=== PATIENT | female | born 1995 | race Caucasian/White ===

== ENCOUNTER 2017-08-24 05:55 | Emergency (ER) | payer BC ==
[~2017-08-24] VITALS: Ht 160 cm; Wt 72.9 kg
[2017-08-24 05:57] VITALS: TEMP 36.9; Ht 160 cm; Wt 72.9 kg
[2017-08-24] MEDS: GI COCKTAIL PO STA (06:10)
[2017-08-24] MEDS ORDERED: ETON1IMP2 (06:18)
--- NOTE | 2017-08-24 06:24 | EMERGENCY ROOM VISIT NOTE ---
History First contact with patient: 06:10 Chief Complaint: CHEST PAIN Stated Complaint: CHEST PAIN, SHORTNESS OF BREATH Nursing Triage Summary: c/o chest pain for 1 hr states she has been up all night due to back spasams. took baclofen 4 of them and tylenol. History of Present Illness The patient is a 22 year old female who presents to the Emergency Room for evaluation of substernal chest pain. Notes that she has been up all night due to spasm in lower back. these back spasms are quite common for her and she uses Baclofen regularly. She took 4 overnight as well as she thinks Tylenol. She had coffee earlier in the evening. She has history of GERD though states she has not taken her anti-acids in quite some time. About an hour or 2 ago developed sharp, substernal chest pain radiating up chest. Associated with shortness of breath. Pain continued until she came in to ED for further evaluation. Notes that initially pain 10/10 though has started resolving and is currently 6/10. 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 Nothing makes better nor worse. No trauma. No previous symptoms like this. She has not had any syncope, palpitations, n/v, abdominal pain, nor other symptoms. She has no family history of early CAD nor PE/DVT. She has no history of PE, DVT, Travel, Leg swelling, immobilization, though she does have Implanon BC. Denies stress but admits multiple papers due for classes in next few days. Review of Systems See HPI for pertinent positives & negatives. A total of 10 systems reviewed and were otherwise negative. Social History Smoking Status: Never Smoker Smokeless Tobacco Use: No Marital Status: single Housing Status: lives with roommate Occupation Status: [id number] student Current/Historical Medications Scheduled Etonogestrel (Nexplanon), 1 DOSE CONTINOUS Famotidine (Pepcid), 20 MG PO BID Physical Exam Vital Signs Date Time Temp Pulse Resp B/P (MAP) Pulse Ox O2 Delivery O2 Flow Rate FiO2 08/24/17 06:50 67 08/24/17 06:31 71 18 119/69 97 Room Air 08/24/17 06:06 98 Room Air 08/24/17 05:57 36.9 66 16 120/83 99 Room Air Physical Exam GENERAL: Patient is well appearing and in no acute distress. HEENT: No acute trauma, normocephalic atraumatic, mucous membranes moist, no nasal congestion, no scleral icterus. NECK: No stridor, no adenopathy, no meningismus, trachea is midline. LUNGS: No dyspnea. Clear to auscultation and equal bilaterally. No wheeze, no rhonchi. HEART: Regular rate and rhythm. No murmurs, rubs, gallops appreciated. ABDOMEN: Soft, nontender, bowel sounds positive, no masses appreciated, no peritonitis. BACK: No midline tenderness, no CVA tenderness EXTREMITIES: Normal motion all extremities, no cyanosis, no edema. NEUROLOGIC: Alert and oriented, no acute motor or sensory deficits, no focal weakness, cranial nerves grossly intact. SKIN: No rash, no jaundice, no diaphoresis. Medical Decision & Procedures Medications Administered Medications (Trade) Dose Ordered Sig/Nava Route Start Time Stop Time Status Last Admin Dose Admin Ranitidine HCl (zANTac SYRUP) 150 mg NOW ONCE PO 08/24/17 06:15 08/24/17 06:16 DC 08/24/17 06:26 150 MG Al Hydroxide/Mg Hydroxide (Maalox Susp) 30 ml STK-MED ONCE .ROUTE 08/24/17 06:25 08/24/17 06:26 DC 08/24/17 06:27 30 ML Lidocaine HCl (Viscous Lidocaine 2% Soln) 20 ml STK-MED ONCE .ROUTE 08/24/17 06:25 08/24/17 06:26 DC 08/24/17 06:27 20 ML Medical Decision Differential: MSK, GERD, PE, ACS, Aortic Dissection, Arrhythmia, Pneumothorax, Infectious, Pericarditis/Myocarditis, Esophageal Rupture, Gastrointestinal, amongst other pathologies entertained. 22 yr old female with substernal cp after being awake with low back spasm all night. Back pain chronic and she states that is normal for her. CP without EKG abnormalities thus I do not feel this is acs, carditis. CXR clear without evidence dissection, rupture, pntx, infection. Complete improvement with GI cocktail thus I suspect this is gerd. Given complete resolution, no further cp/ sob and normal vitals she does not meet criteria for CT PE and I have cancelled dimer. She has quite bad back issues and as baclofen Tyl not working, wanting to avoid NSAIDs I will give her very limited # oxy ir with strict instructions regarding danger and risks of addiction. Impression Primary Impression: Substernal precordial chest pain Additional Impression: GERD (gastroesophageal reflux disease) Departure Information Dispostion Home / Self-Care Condition GOOD Prescriptions Famotidine (Pepcid) 20 Mg Tab 20 MG PO BID for 10 Days, #20 TAB Prov: Sean Monteiro M.D. 08/24/17 Patient Instructions ED GERD, My [facility] Health Problem Qualifiers
[2017-08-24] MEDS: RANITIDINE HCL SYRUP 150 MG/10 ML UDC PO ONE (06:26)
[2017-08-24] MEDS: LIDOCAINE HCL 2% VISC SOLN 20 ML UDC ONE (06:27)
[2017-08-24] MEDS: ALUMINUM/MAGNESIUM SUSP 30 ML UDC ONE (06:27)
--- NOTE | 2017-08-24 06:41 | DIAGNOSTIC IMAGING REPORT ---
CHEST ONE VIEW PORTABLE HISTORY: 22 years-old Female substernal chest pressure and shortness of breath acute shortness of breath COMPARISON: None available TECHNIQUE: Portable AP view of the chest FINDINGS: Azygos lobe and fissure. Heart silhouette is within normal limits. No pneumothorax, pleural effusion, focal airspace consolidation or overt pulmonary edema. Bones of the chest are grossly intact. IMPRESSION: No acute process. The above report was generated using voice recognition software. It may contain grammatical, syntax or spelling errors. Electronically signed by: Elio Woods M.D. 08/24/2017 6:40 AM Dictated Date/Time: 08/24/2017 6:38 AM
[2017-08-24] MEDS ORDERED: FAMO20TA11 PO (06:48)
[2017-08-24] MEDS: OXYCODONE IR HOME PACK PO ONE (06:52)
[2017-08-24 06:55] VITALS: BP 118/58; PULSE 72; O2SAT 98
== END 2017-08-24 06:56 | disposition home or self-care (01) ==
LOC: C.EDB 05:57 → C.EDA 06:56
DX: R07.2 Precordial pain (principal); K21.9 Gastro-esophageal reflux disease without esophagitis; M62.830 Muscle spasm of back